=== PATIENT | female | born 1990 | race African-American/Black ===

== ENCOUNTER 2016-10-07 15:02 | Emergency (ER) | payer OTHER ==
[~2016-10-07] VITALS: Ht 175.3 cm; Wt 52.0 kg
[2016-10-07 15:06] VITALS: BP 135/80; PULSE 74; RESP 16; TEMP 98.3; O2SAT 100
--- NOTE | 2016-10-07 15:23 | PD ---
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 She recently started to have sex with her boyfriend and prior to that had had STD testing all of which was negative. She says she recently found out that her boyfriend did not get tested and she is concerned she may have contracted something from him. PFS Past Medical History Medical History: Denies Significant Hx Tetanus Vaccination: > 5 Years Influenza Vaccination: No ?: Not Past Surgical History Abdominal Surgery: Yes (UMBILICAL HERNIA REPAIR) Social History Alcohol Use: Yes (SOCIAL) Tobacco Use: No Substance Use: No Allergies-Medications (Allergen,Severity, Reaction): Coded Allergies: No Known Allergies (Unverified , 10/07/16) Reported Meds & Prescriptions Reported Meds & Active Scripts Active No Active Prescriptions or Reported Medications Review of Systems Except as stated in HPI: all other systems reviewed are Neg Physical Exam Narrative GENERAL:Well appearing, no acute distress SKIN: Focused skin assessment warm and dry. HEAD: Atraumatic. Normocephalic. EYES: Pupils equal and round. No injection or drainage. ENT: Moist mucous membranes NECK: Trachea midline. CARDIOVASCULAR: Regular rate and rhythm. No murmur appreciated. RESPIRATORY: Clear to auscultation. Breath sounds equal bilaterally. GASTROINTESTINAL: Abdomen soft, non-tender, nondistended. CORPORATE MANAGER: 2 small vesicular lesions at 5:00 along the vulva, dark blood in the vault with no discharge MUSCULOSKELETAL: No obvious deformities. NEUROLOGICAL: Awake and alert. No obvious cranial nerve deficits. Moving all extremities. PSYCHIATRIC: Appropriate mood and affect; insight and judgment normal. Data Data Last Documented VS Vital Signs Date Time Temp Pulse Resp B/P Pulse Ox O2 Delivery O2 Flow Rate FiO2 10/07/16 15:06 98.3 74 16 135/80 100 Orders Wet Prep Profile (10/07/16 15:21) Gc And Chlamydia Pcr (10/07/16 15:21) Ed Urine Pregnancytest Poc (5/23/17 15:25) Labs Laboratory Tests Test 10/07/16 15:50 Clue Cells (Wet Prep) NONE SEEN Vaginal Trichomonas (Wet Prep) NONE SEEN Vaginal Yeast (Wet Prep) NONE SEEN MDM Medical Decision Making Medical Screen Exam Complete: Yes Emergency Medical Condition: Yes Differential Diagnosis Genital herpes, yeast infection, vaginosis, Trichomonas, Chlamydia Narrative Course This is a 25-year-old female who presents to the emergency department with 2 lesions on her vagina that it been painful with vaginal itching. I'm not certain that these are HSV and they may be a local folliculitis. I obtained an HSV swab and will treat the patient empirically with antivirals. I will call her with her viral culture results in 2-3 days. Diagnosis Primary Impression: Vaginal lesion Patient Instructions: General Instructions Additional Instructions: If you develop fever, chills, severe abdominal pain, persistent vomiting or inability to eat return to the emergency department. Your pelvic exam today did not include a Pap smear. It is important to followup with a hotel operations manager on a yearly basis to be tested for cervical cancer as we do not do that from the emergency department. If there is a concern that you have sexually transmitted disease, your partner should be tested. You should followup with your hotel operations manager or with the health department to get tested for other sexually transmitted diseases like HIV and syphilis, as we do not test for these in the emergency department Follow up with [facility] at: Follow up with: [facility] [address] [place] [address]. [address] [place] [address] Office Hours Thursday - 9:00 am - 5:30 pm Thursday 8:00 am - 12:00 pm Teen Tuesdays 4:00 - 6:30 pm Med/Other Pt SpecificInfo: Prescription(s) given Scripts Valacyclovir 1 Gm Tab1,000 Mg PO BID 10 Days Prov:Mikayla Rosario MD 10/07/16 Disposition: 01 DISCHARGE HOME Condition: Stable Mikayla Rosario MD October 07, 2016 15:23
[2016-10-07] MEDS ORDERED: VALA1TAB PO (16:06)
[2016-10-07 19:32] LABS: CHLAMYDIA PCR NOT DETECTED (NOT DETECT); NEISSERIA PCR NOT DETECTED (NOT DETECT)
--- NOTE | 2016-10-21 10:19 | ED.CB ---
ED Call Back Communication Pt called ED and I spoke with her. She has not yet made an appointment with a plant machinist. Unfortunately her HSV swab did not process correctly and was cancelled by the lab. I told her I was fairly doubtful that these were HSV lesions, but she should still be evaluated by a plant machinist. She says she will call [facility] later today. Mikayla Rosario MD Oct 21, 2016 10:19
== END 2016-10-07 16:15 | disposition home or self-care (01) ==
LOC: PHED 15:02
DX: L98.9 Disorder of the skin and subcutaneous tissue, unspecified (principal); R10.2 Pelvic and perineal pain; L29.2 Pruritus vulvae
CPT/HCPCS: 84703; 87210; 87491; 87591; 99283